=== PATIENT | male | born 1930 | race African-American/Black ===

== ENCOUNTER 2017-05-06 10:04 | Inpatient (IN) | payer MEDICARE, OTHER ==
[2017-05-06 10:40] LABS: ADD MAN DIFF? NO
[2017-05-06 10:57] LABS: ANION GAP 13 (6-14); BASO # 0.1 x10^3/uL (0.0-0.2); BASO % 1 % (0-3); BLOOD UREA NITROGEN 32 mg/dL (8-26); BUN/CREATININE RATIO 15 (6-20); CALCIUM 8.9 mg/dL (8.5-10.1); CARBON DIOXIDE 24 mmol/L (21-32); CHLORIDE 104 mmol/L (98-107); CREATININE 2.2 mg/dL (0.7-1.3); EOS # 0.1 x10^3/uL (0.0-0.7); EOS % 2 % (0-3); GFR 34.7; GLUCOSE 108 mg/dL (70-99); HEMOGLOBIN 11.7 g/dL (13.0-17.5); LYMPH # 0.6 x10^3/uL (1.0-4.8); LYMPH % 9 % (24-48); MEAN CORPUSCULAR HEMOGLOBIN 31 pg (25-35); MEAN CORPUSCULAR HGB CONC 33 g/dL (31-37); MEAN CORPUSCULAR VOLUME 96 fL (79-100); MONO # 1.1 x10^3/uL (0.0-1.1); MONO % 17 % (0-9); NEUT # 4.7 x10^3uL (1.8-7.7); NEUT % 71 % (31-73); PLATELET COUNT 168 x10^3/uL (140-400); POTASSIUM 4.2 mmol/L (3.5-5.1); RED BLOOD COUNT 3.75 x10^6/uL (4.30-5.70); RED CELL DISTRIBUTION WIDTH 13.4 % (11.5-14.5); SODIUM 141 mmol/L (136-145); WHITE BLOOD COUNT 6.6 x10^3/uL (4.0-11.0)
[2017-05-06 11:04] LABS: ALBUMIN 3.5 g/dL (3.4-5.0); ALK PHOS 88 U/L (46-116); ALT (SGPT) 29 U/L (16-63); AST (SGOT) 50 U/L (15-37); CREATINE KINASE 418 U/L (39-308); TOTAL BILIRUBIN 0.7 mg/dL (0.2-1.0)
[2017-05-06 11:05] LABS: TROPONINI 0.034 ng/mL (0.000-0.055)
[2017-05-06 11:23] LABS: C-REACTIVE PROTEIN 76.5 mg/L (0-3.3)
[2017-05-06 11:49] LABS: NT-PRO BNP 4006 pg/mL (0-449)
[2017-05-06] MEDS ORDERED: ONDANSETRON PF 4 MG/2 ML VIAL. IV (12:30)
[2017-05-06] MEDS ORDERED: FUROSEMIDE 20 MG/2 ML VIAL. IVP (12:30)
[2017-05-06] MEDS: VANCOMYCIN 2 GM in IV DEXTROSE 5 %-0.2 % NACL 500 ML IV (12:46)
[2017-05-06] MEDS: FUROSEMIDE 20 MG/2 ML VIAL. IVP (12:46)
[2017-05-06] MEDS: VANCOMYCIN PER PHARMACY MC (14:47)
[2017-05-06] MEDS: FUROSEMIDE 40 MG/4 ML VIAL. IVP (15:54)
[2017-05-06] MEDS: MORPHINE SULFATE 4 MG/ML DISP.SYRIN. IV (15:54)
[2017-05-06 16:14] LABS: BILIRUBIN,URINE NEGATIVE (NEG); CLARITY,URINE CLEAR; COLOR,URINE YELLOW; GLUCOSE,URINE NEGATIVE (NEG); NITRITE,URINE NEGATIVE (NEG); PH,URINE 5.5; PROTEIN,URINE 30 mg/dL (NEG-TRACE); UROBILINOGEN,URINE 0.2 mg/dL (0.2 mg/dL)
[2017-05-06 16:41] LABS: BACTERIA,URINE 0 /HPF (0-FEW); RBC,URINE 0 /HPF (0-2); SQUAMOUS EPITHELIAL CELL,UR OCC /LPF; WBC,URINE OCC /HPF (0-4)
[2017-05-06 16:42] LABS: AMORPHOUS SEDIMENT,UR PRESENT /HPF; HYALINE CASTS, URINE OCCASIONAL /HPF
[2017-05-06] MEDS: LACTOBACILLUS RHAMNOSUS GG 1 CAPSULE. PO (21:02)
[2017-05-07 05:15] LABS: ADD MAN DIFF? NO
[2017-05-07 05:18] LABS: BASO % 1 % (0-3); EOS # 0.2 x10^3/uL (0.0-0.7); EOS % 4 % (0-3); HEMATOCRIT 32.6 % (39.0-53.0); HEMOGLOBIN 10.8 g/dL (13.0-17.5); LYMPH # 0.8 x10^3/uL (1.0-4.8); LYMPH % 17 % (24-48); MEAN CORPUSCULAR HEMOGLOBIN 32 pg (25-35); MEAN CORPUSCULAR HGB CONC 33 g/dL (31-37); MEAN CORPUSCULAR VOLUME 96 fL (79-100); MONO % 20 % (0-9); NEUT % 59 % (31-73); PLATELET COUNT 142 x10^3/uL (140-400); RED BLOOD COUNT 3.39 x10^6/uL (4.30-5.70); WHITE BLOOD COUNT 5.1 x10^3/uL (4.0-11.0)
[2017-05-07 05:40] LABS: ANION GAP 11 (6-14); BLOOD UREA NITROGEN 34 mg/dL (8-26); CALCIUM 8.4 mg/dL (8.5-10.1); CARBON DIOXIDE 25 mmol/L (21-32); CHLORIDE 107 mmol/L (98-107); CREATININE 2.5 mg/dL (0.7-1.3); GFR 29.9; GLUCOSE 90 mg/dL (70-99); POTASSIUM 4.1 mmol/L (3.5-5.1); SODIUM 143 mmol/L (136-145)
[2017-05-07 08:48] LABS: CHOLESTEROL 98 mg/dL (0-200); HDLC 48 mg/dL (40-60); LDLC 41 mg/dL (0-100); NON-HDL CHOLESTEROL 50 mg/dL (0-129); TRIGLYCERIDES 44 mg/dL (0-150); VLDLC 9 mg/dL (0-40)
[2017-05-07 08:56] LABS: THYROID STIM HORMONE (TSH) 30.428 uIU/mL (0.358-3.74)
[2017-05-07] MEDS: amLODIPine BESYLATE 5 MG TABLET PO (10:11)
[2017-05-07] MEDS: LACTOBACILLUS RHAMNOSUS GG 1 CAPSULE. PO ×2 (10:11→21:14)
[2017-05-07] MEDS: ALLOPURINOL 100 MG TABLET. PO (10:11)
[2017-05-07] MEDS: LEVOTHYROXINE 100 MCG TABLET PO (10:11)
[2017-05-07] MEDS: ASPIRIN ENTERIC COATED 81 MG TABLET.DR. PO (10:11)
[2017-05-07] MEDS: ENOXAPARIN 30 MG/0.3 ML SYRINGE. SQ (10:13)
[2017-05-07] MEDS ORDERED: MAGNESIUM SULFATE 2GM 50 ML IV (11:15)
[2017-05-07 11:28] LABS: % SAT IRON 15 % (15-34); IRON,SERUM 31 ug/dL (65-175)
[2017-05-07 11:30] LABS: RETIC COUNT 1.1 % (0.5-2.5)
[2017-05-07 11:41] LABS: FERRITIN 150 ng/mL (26-388)
[2017-05-07] MEDS ORDERED: VANCOMYCIN 1.25 GM in IV DEXTROSE 5% 250 ML IV (13:00)
[2017-05-07] MEDS: FLUCONAZOLE 100 MG TABLET. PO (13:45)
[2017-05-07] MEDS: PIPERACILLIN/TAZOBACTAM 2.25 GM in IV NORMAL SALINE 50ML 50 ML IV ×2 (13:45→18:34)
[2017-05-07] MEDS: LINEZOLID 600 MG TABLET PO (21:14)
[2017-05-08] MEDS: PIPERACILLIN/TAZOBACTAM 2.25 GM in IV NORMAL SALINE 50ML 50 ML IV ×5 (00:43→23:29)
[2017-05-08 04:31] LABS: BASO % 1 % (0-3); EOS # 0.2 x10^3/uL (0.0-0.7); EOS % 4 % (0-3); HEMATOCRIT 33.1 % (39.0-53.0); HEMOGLOBIN 10.9 g/dL (13.0-17.5); LYMPH % 20 % (24-48); MEAN CORPUSCULAR HEMOGLOBIN 32 pg (25-35); MEAN CORPUSCULAR HGB CONC 33 g/dL (31-37); MEAN CORPUSCULAR VOLUME 97 fL (79-100); MONO # 1.1 x10^3/uL (0.0-1.1); MONO % 20 % (0-9); NEUT # 2.9 x10^3uL (1.8-7.7); NEUT % 55 % (31-73); PLATELET COUNT 141 x10^3/uL (140-400); RED BLOOD COUNT 3.43 x10^6/uL (4.30-5.70); RED CELL DISTRIBUTION WIDTH 13.8 % (11.5-14.5); WHITE BLOOD COUNT 5.2 x10^3/uL (4.0-11.0)
[2017-05-08 04:59] LABS: ADD MAN DIFF? YES
[2017-05-08] MEDS: LEVOTHYROXINE 100 MCG TABLET PO (05:15)
[2017-05-08 05:55] LABS: ALBUMIN 2.8 g/dL (3.4-5.0); ANION GAP 12 (6-14); BLOOD UREA NITROGEN 37 mg/dL (8-26); CALCIUM 8.5 mg/dL (8.5-10.1); CARBON DIOXIDE 24 mmol/L (21-32); CHLORIDE 106 mmol/L (98-107); CREATININE 2.4 mg/dL (0.7-1.3); GFR 31.4; GLUCOSE 90 mg/dL (70-99); PHOSPHORUS 3.7 mg/dL (2.6-4.7); POTASSIUM 3.9 mmol/L (3.5-5.1); SODIUM 142 mmol/L (136-145)
[2017-05-08 08:34] LABS: % BANDS 3 % (0-9); % EOS 3 % (0-5); % LYMPHS 17 % (24-48); % MONOS 17 % (0-10); % SEGS 60 % (35-66); PLT ESTIMATE ADEQUATE (ADEQUATE)
[2017-05-08] MEDS: LINEZOLID 600 MG TABLET PO ×2 (08:48→22:08)
[2017-05-08] MEDS: LACTOBACILLUS RHAMNOSUS GG 1 CAPSULE. PO ×2 (08:48→22:08)
[2017-05-08] MEDS: ALLOPURINOL 100 MG TABLET. PO (08:48)
[2017-05-08] MEDS: FLUCONAZOLE 100 MG TABLET. PO (08:48)
[2017-05-08] MEDS: ASPIRIN ENTERIC COATED 81 MG TABLET.DR. PO (08:49)
[2017-05-08] MEDS: ENOXAPARIN 40 MG/0.4 ML SYRINGE. SQ (08:49)
[2017-05-08] MEDS: amLODIPine BESYLATE 5 MG TABLET PO (08:49)
[2017-05-08] MEDS: CARVEDILOL 3.125 MG TABLET. PO ×2 (11:51→17:35)
[2017-05-08] MEDS: FUROSEMIDE 40 MG TABLET. PO (14:01)
[2017-05-08] MEDS: FUROSEMIDE 100 MG/10 ML VIAL. IVP ×2 (14:34→23:28)
[2017-05-08] MEDS: ALBUMIN HUMAN 25% 100 ML IV ×2 (14:34→22:08)
[2017-05-08 16:11] LABS: TOTAL PROTEIN CREATININE RATIO 519 mg/g creat (0-200); UR CREATININE RD 78.6 mg/dL (Not Estab.); UR PROTEIN RD 40.8 mg/dL (Not Estab.)
[2017-05-09] MEDS: PIPERACILLIN/TAZOBACTAM 2.25 GM in IV NORMAL SALINE 50ML 50 ML IV ×4 (05:41→23:58)
[2017-05-09] MEDS: LEVOTHYROXINE 112 MCG TABLET PO (05:41)
[2017-05-09 07:03] LABS: ALBUMIN 3.3 g/dL (3.4-5.0); ALBUMIN/GLOBULIN RATIO 1.1 (1.0-1.7); ALK PHOS 70 U/L (46-116); ALT (SGPT) 25 U/L (16-63); ANION GAP 12 (6-14); AST (SGOT) 31 U/L (15-37); BLOOD UREA NITROGEN 36 mg/dL (8-26); BUN/CREATININE RATIO 13 (6-20); CALCIUM 8.3 mg/dL (8.5-10.1); CARBON DIOXIDE 26 mmol/L (21-32); CHLORIDE 104 mmol/L (98-107); CREATININE 2.7 mg/dL (0.7-1.3); GFR 27.4; GLUCOSE 88 mg/dL (70-99); POTASSIUM 3.8 mmol/L (3.5-5.1); SODIUM 142 mmol/L (136-145); TOTAL BILIRUBIN 0.7 mg/dL (0.2-1.0); TOTAL PROTEIN 6.3 g/dL (6.4-8.2)
[2017-05-09 07:06] LABS: MAGNESIUM 1.9 mg/dL (1.8-2.4)
[2017-05-09] MEDS: FLUCONAZOLE 100 MG TABLET. PO (08:24)
[2017-05-09] MEDS: LACTOBACILLUS RHAMNOSUS GG 1 CAPSULE. PO ×2 (08:24→21:27)
[2017-05-09] MEDS: ALLOPURINOL 100 MG TABLET. PO (08:24)
[2017-05-09] MEDS: LINEZOLID 600 MG TABLET PO ×2 (08:24→21:27)
[2017-05-09] MEDS: CARVEDILOL 3.125 MG TABLET. PO ×2 (08:24→17:35)
[2017-05-09] MEDS: FUROSEMIDE 40 MG TABLET. PO ×2 (08:24→14:00)
[2017-05-09] MEDS: ASPIRIN ENTERIC COATED 81 MG TABLET.DR. PO (08:24)
[2017-05-09] MEDS: POTASSIUM CHLORIDE 10 MEQ TABLET.ER. PO ×3 (09:10→17:34)
[2017-05-09] MEDS: ALBUMIN HUMAN 25% 100 ML IV ×2 (10:24→21:08)
[2017-05-09] MEDS: metOLazone 2.5 MG TABLET PO (10:25)
[2017-05-09] MEDS: ENOXAPARIN 40 MG/0.4 ML SYRINGE. SQ (10:25)
[2017-05-09] MEDS: FUROSEMIDE 100 MG/10 ML VIAL. IVP ×2 (11:30→22:27)
[2017-05-10] MEDS: PIPERACILLIN/TAZOBACTAM 2.25 GM in IV NORMAL SALINE 50ML 50 ML IV ×3 (06:05→17:49)
[2017-05-10] MEDS: LEVOTHYROXINE 125 MCG TABLET PO (06:05)
[2017-05-10 06:16] LABS: ALBUMIN 3.4 g/dL (3.4-5.0); ANION GAP 10 (6-14); BLOOD UREA NITROGEN 37 mg/dL (8-26); CALCIUM 8.6 mg/dL (8.5-10.1); CARBON DIOXIDE 28 mmol/L (21-32); CHLORIDE 103 mmol/L (98-107); CREATININE 2.9 mg/dL (0.7-1.3); GFR 25.2; GLUCOSE 90 mg/dL (70-99); MAGNESIUM 1.8 mg/dL (1.8-2.4); PHOSPHORUS 3.9 mg/dL (2.6-4.7); POTASSIUM 3.7 mmol/L (3.5-5.1); SODIUM 141 mmol/L (136-145)
[2017-05-10] MEDS: ASPIRIN ENTERIC COATED 81 MG TABLET.DR. PO (09:13)
[2017-05-10] MEDS: LACTOBACILLUS RHAMNOSUS GG 1 CAPSULE. PO ×2 (09:13→21:09)
[2017-05-10] MEDS: LINEZOLID 600 MG TABLET PO ×2 (09:13→21:09)
[2017-05-10] MEDS: ALLOPURINOL 100 MG TABLET. PO (09:14)
[2017-05-10] MEDS: SPIRONOLACTONE 25 MG TABLET PO (09:14)
[2017-05-10] MEDS: metOLazone 2.5 MG TABLET PO (09:14)
[2017-05-10] MEDS: FLUCONAZOLE 100 MG TABLET. PO (09:14)
[2017-05-10] MEDS: ENOXAPARIN 40 MG/0.4 ML SYRINGE. SQ (09:15)
[2017-05-10] MEDS: CARVEDILOL 6.25 MG TABLET. PO ×2 (09:15→17:48)
[2017-05-10] MEDS: POTASSIUM CHLORIDE 10 MEQ TABLET.ER. PO ×3 (10:04→17:48)
[2017-05-10] MEDS: ALBUMIN HUMAN 25% 100 ML IV (19:05)
[2017-05-10] MEDS: FUROSEMIDE 100 MG/10 ML VIAL. IVP (21:10)
[2017-05-11] MEDS: PIPERACILLIN/TAZOBACTAM 2.25 GM in IV NORMAL SALINE 50ML 50 ML IV ×3 (00:41→12:17)
[2017-05-11 05:22] LABS: ALBUMIN 3.6 g/dL (3.4-5.0); ANION GAP 12 (6-14); BLOOD UREA NITROGEN 40 mg/dL (8-26); CARBON DIOXIDE 30 mmol/L (21-32); CHLORIDE 101 mmol/L (98-107); CREATININE 3.2 mg/dL (0.7-1.3); GFR 22.5; GLUCOSE 91 mg/dL (70-99); PHOSPHORUS 4.1 mg/dL (2.6-4.7); POTASSIUM 3.6 mmol/L (3.5-5.1); SODIUM 143 mmol/L (136-145)
[2017-05-11] MEDS: ALBUMIN HUMAN 25% 100 ML IV (06:37)
[2017-05-11] MEDS: LEVOTHYROXINE 125 MCG TABLET PO (06:37)
[2017-05-11] MEDS: ALLOPURINOL 100 MG TABLET. PO (09:36)
[2017-05-11] MEDS: CARVEDILOL 6.25 MG TABLET. PO ×2 (09:36→17:32)
[2017-05-11] MEDS: ASPIRIN ENTERIC COATED 81 MG TABLET.DR. PO (09:36)
[2017-05-11] MEDS: FLUCONAZOLE 100 MG TABLET. PO (09:36)
[2017-05-11] MEDS: SPIRONOLACTONE 25 MG TABLET PO (09:36)
[2017-05-11] MEDS: FUROSEMIDE 100 MG/10 ML VIAL. IVP (09:37)
[2017-05-11] MEDS: LINEZOLID 600 MG TABLET PO ×2 (09:37→21:18)
[2017-05-11] MEDS: LACTOBACILLUS RHAMNOSUS GG 1 CAPSULE. PO ×2 (09:37→21:18)
[2017-05-11] MEDS: ENOXAPARIN 30 MG/0.3 ML SYRINGE. SQ (09:41)
[2017-05-11] MEDS: IV NORMAL SALINE 1000ML BAG 1,000 ML IV (12:17)
[2017-05-11] MEDS: AMOXICILLIN/K CLAV 500/125MG TABLET. PO (21:18)
[2017-05-12 06:32] LABS: ALBUMIN 3.7 g/dL (3.4-5.0); ANION GAP 12 (6-14); BLOOD UREA NITROGEN 39 mg/dL (8-26); CALCIUM 8.7 mg/dL (8.5-10.1); CARBON DIOXIDE 29 mmol/L (21-32); CHLORIDE 99 mmol/L (98-107); CREATININE 3.4 mg/dL (0.7-1.3); GLUCOSE 91 mg/dL (70-99); MAGNESIUM 1.9 mg/dL (1.8-2.4); PHOSPHORUS 4.5 mg/dL (2.6-4.7); POTASSIUM 3.5 mmol/L (3.5-5.1); SODIUM 140 mmol/L (136-145)
[2017-05-12] MEDS: LEVOTHYROXINE 125 MCG TABLET PO (06:43)
[2017-05-12] MEDS: IV NORMAL SALINE 250ML 250 ML IV ×2 (09:00→14:00)
[2017-05-12] MEDS: ALLOPURINOL 100 MG TABLET. PO (09:37)
[2017-05-12] MEDS: LACTOBACILLUS RHAMNOSUS GG 1 CAPSULE. PO ×2 (09:37→22:46)
[2017-05-12] MEDS: FLUCONAZOLE 100 MG TABLET. PO (09:37)
[2017-05-12] MEDS: AMOXICILLIN/K CLAV 500/125MG TABLET. PO ×2 (09:38→22:46)
[2017-05-12] MEDS: LINEZOLID 600 MG TABLET PO ×2 (09:38→22:46)
[2017-05-12] MEDS: SPIRONOLACTONE 25 MG TABLET PO (09:38)
[2017-05-12] MEDS: CARVEDILOL 6.25 MG TABLET. PO ×2 (09:39→17:32)
[2017-05-12] MEDS: ASPIRIN ENTERIC COATED 81 MG TABLET.DR. PO (09:39)
[2017-05-12] MEDS: ENOXAPARIN 30 MG/0.3 ML SYRINGE. SQ (09:40)
[2017-05-12 11:05] LABS: POC GLUCOSE 128 mg/dL (70-99)
[2017-05-12] MEDS: IV NORMAL SALINE 1000ML BAG 1,000 ML IV (12:26)
[2017-05-12 16:34] LABS: POC GLUCOSE 105 mg/dL (70-99)
[2017-05-13] MEDS: LEVOTHYROXINE 125 MCG TABLET PO (06:02)
[2017-05-13 06:40] LABS: ALBUMIN 3.6 g/dL (3.4-5.0); ANION GAP 13 (6-14); BLOOD UREA NITROGEN 45 mg/dL (8-26); CALCIUM 8.8 mg/dL (8.5-10.1); CARBON DIOXIDE 29 mmol/L (21-32); CHLORIDE 100 mmol/L (98-107); CREATININE 3.1 mg/dL (0.7-1.3); GFR 23.3; GLUCOSE 92 mg/dL (70-99); PHOSPHORUS 4.3 mg/dL (2.6-4.7); POTASSIUM 3.5 mmol/L (3.5-5.1); SODIUM 142 mmol/L (136-145)
[2017-05-13] MEDS: AMOXICILLIN/K CLAV 500/125MG TABLET. PO ×2 (08:32→22:10)
[2017-05-13] MEDS: ASPIRIN ENTERIC COATED 81 MG TABLET.DR. PO (08:33)
[2017-05-13] MEDS: LACTOBACILLUS RHAMNOSUS GG 1 CAPSULE. PO ×2 (08:33→22:11)
[2017-05-13] MEDS: CARVEDILOL 6.25 MG TABLET. PO ×2 (08:33→16:56)
[2017-05-13] MEDS: IV NORMAL SALINE 250ML 250 ML IV ×2 (08:33→15:00)
[2017-05-13] MEDS: ALLOPURINOL 100 MG TABLET. PO (08:33)
[2017-05-13] MEDS: FLUCONAZOLE 100 MG TABLET. PO (08:33)
[2017-05-14 06:12] LABS: ALBUMIN 3.5 g/dL (3.4-5.0); ANION GAP 12 (6-14); BLOOD UREA NITROGEN 48 mg/dL (8-26); CALCIUM 8.6 mg/dL (8.5-10.1); CARBON DIOXIDE 27 mmol/L (21-32); CHLORIDE 101 mmol/L (98-107); GFR 24.2; GLUCOSE 92 mg/dL (70-99); PHOSPHORUS 4.1 mg/dL (2.6-4.7); POTASSIUM 3.6 mmol/L (3.5-5.1); SODIUM 140 mmol/L (136-145)
[2017-05-14] MEDS: LEVOTHYROXINE 125 MCG TABLET PO (06:21)
[2017-05-14] MEDS: FLUCONAZOLE 100 MG TABLET. PO (07:59)
[2017-05-14] MEDS: CARVEDILOL 6.25 MG TABLET. PO ×2 (07:59→16:56)
[2017-05-14] MEDS: LACTOBACILLUS RHAMNOSUS GG 1 CAPSULE. PO ×2 (07:59→21:30)
[2017-05-14] MEDS: ALLOPURINOL 100 MG TABLET. PO (07:59)
[2017-05-14] MEDS: ASPIRIN ENTERIC COATED 81 MG TABLET.DR. PO (07:59)
[2017-05-14] MEDS: AMOXICILLIN/K CLAV 500/125MG TABLET. PO ×2 (07:59→21:30)
[2017-05-14] MEDS: IV NORMAL SALINE 250ML 250 ML IV ×2 (09:30→14:36)
[2017-05-14] MEDS: VITS A & D/LANOLIN TOPICAL OINTMENT 56GM TUBE. TP (21:32)
[2017-05-15] MEDS: LEVOTHYROXINE 125 MCG TABLET PO (06:01)
[2017-05-15] MEDS: FLUCONAZOLE 100 MG TABLET. PO (09:14)
[2017-05-15] MEDS: AMOXICILLIN/K CLAV 500/125MG TABLET. PO ×2 (09:14→20:20)
[2017-05-15] MEDS: ALLOPURINOL 100 MG TABLET. PO (09:14)
[2017-05-15] MEDS: LACTOBACILLUS RHAMNOSUS GG 1 CAPSULE. PO ×2 (09:15→20:20)
[2017-05-15] MEDS: CARVEDILOL 6.25 MG TABLET. PO ×2 (09:15→17:11)
[2017-05-15] MEDS: ASPIRIN ENTERIC COATED 81 MG TABLET.DR. PO (09:15)
[2017-05-15] MEDS: IV NORMAL SALINE 250ML 250 ML IV ×2 (09:16→14:00)
[2017-05-16 05:42] LABS: ANION GAP 10 (6-14); BLOOD UREA NITROGEN 45 mg/dL (8-26); CALCIUM 9.2 mg/dL (8.5-10.1); CARBON DIOXIDE 27 mmol/L (21-32); CHLORIDE 101 mmol/L (98-107); CREATININE 2.5 mg/dL (0.7-1.3); GFR 29.9; GLUCOSE 99 mg/dL (70-99); POTASSIUM 3.7 mmol/L (3.5-5.1); SODIUM 138 mmol/L (136-145)
[2017-05-16] MEDS: VITS A & D/LANOLIN TOPICAL OINTMENT 56GM TUBE. TP (06:00)
[2017-05-16] MEDS: LEVOTHYROXINE 125 MCG TABLET PO (06:16)
[2017-05-16] MEDS: IV NORMAL SALINE 250ML 250 ML IV ×2 (09:00→14:00)
[2017-05-16] MEDS: CARVEDILOL 6.25 MG TABLET. PO ×2 (09:16→17:17)
[2017-05-16] MEDS: FLUCONAZOLE 100 MG TABLET. PO (09:16)
[2017-05-16] MEDS: LACTOBACILLUS RHAMNOSUS GG 1 CAPSULE. PO ×2 (09:16→21:19)
[2017-05-16] MEDS: ASPIRIN ENTERIC COATED 81 MG TABLET.DR. PO (09:16)
[2017-05-16] MEDS: AMOXICILLIN/K CLAV 500/125MG TABLET. PO ×2 (09:16→21:19)
[2017-05-16] MEDS: ALLOPURINOL 100 MG TABLET. PO (09:16)
[2017-05-16] MEDS: ACETAMINOPHEN 500 MG TABLET PO ×2 (17:17→23:29)
[2017-05-16] MEDS: guaiFENesin ORAL 200 MG/10 ML LIQUID. PO (17:17)
[2017-05-17] MEDS: LEVOTHYROXINE 125 MCG TABLET PO (05:45)
[2017-05-17] MEDS: guaiFENesin ORAL 200 MG/10 ML LIQUID. PO (05:45)
[2017-05-17] MEDS: AMOXICILLIN/K CLAV 500/125MG TABLET. PO ×2 (09:31→20:49)
[2017-05-17] MEDS: ALLOPURINOL 100 MG TABLET. PO (09:31)
[2017-05-17] MEDS: LACTOBACILLUS RHAMNOSUS GG 1 CAPSULE. PO ×2 (09:31→20:49)
[2017-05-17] MEDS: ASPIRIN ENTERIC COATED 81 MG TABLET.DR. PO (09:31)
[2017-05-17] MEDS: CARVEDILOL 6.25 MG TABLET. PO ×2 (09:31→17:31)
[2017-05-17] MEDS: IV NORMAL SALINE 250ML 250 ML IV (09:32)
[2017-05-17] MEDS: FLUCONAZOLE 100 MG TABLET. PO (09:34)
[2017-05-17] MEDS: ACETAMINOPHEN 500 MG TABLET PO (14:53)
[2017-05-18] MEDS: ACETAMINOPHEN 500 MG TABLET PO ×3 (02:42→16:43)
[2017-05-18 04:55] LABS: ADD MAN DIFF? YES; BASO % 1 % (0-3); EOS % 1 % (0-3); HEMATOCRIT 30.3 % (39.0-53.0); HEMOGLOBIN 10.3 g/dL (13.0-17.5); LYMPH # 0.9 x10^3/uL (1.0-4.8); LYMPH % 21 % (24-48); MEAN CORPUSCULAR HEMOGLOBIN 32 pg (25-35); MEAN CORPUSCULAR HGB CONC 34 g/dL (31-37); MEAN CORPUSCULAR VOLUME 93 fL (79-100); MONO # 1.5 x10^3/uL (0.0-1.1); MONO % 33 % (0-9); NEUT # 1.9 x10^3uL (1.8-7.7); NEUT % 44 % (31-73); PLATELET COUNT 77 x10^3/uL (140-400); RED BLOOD COUNT 3.25 x10^6/uL (4.30-5.70); RED CELL DISTRIBUTION WIDTH 13.7 % (11.5-14.5); WHITE BLOOD COUNT 4.5 x10^3/uL (4.0-11.0)
[2017-05-18 05:26] LABS: ALBUMIN 3.4 g/dL (3.4-5.0); ALBUMIN/GLOBULIN RATIO 1.1 (1.0-1.7); ALK PHOS 71 U/L (46-116); ALT (SGPT) 21 U/L (16-63); ANION GAP 10 (6-14); AST (SGOT) 29 U/L (15-37); BLOOD UREA NITROGEN 52 mg/dL (8-26); BUN/CREATININE RATIO 17 (6-20); CALCIUM 8.4 mg/dL (8.5-10.1); CARBON DIOXIDE 26 mmol/L (21-32); CHLORIDE 102 mmol/L (98-107); GFR 24.2; GLUCOSE 102 mg/dL (70-99); POTASSIUM 4.4 mmol/L (3.5-5.1); SODIUM 138 mmol/L (136-145); TOTAL BILIRUBIN 0.4 mg/dL (0.2-1.0); TOTAL PROTEIN 6.6 g/dL (6.4-8.2)
[2017-05-18] MEDS: LEVOTHYROXINE 125 MCG TABLET PO (06:38)
[2017-05-18] MEDS: FLUCONAZOLE 100 MG TABLET. PO (09:09)
[2017-05-18] MEDS: ASPIRIN ENTERIC COATED 81 MG TABLET.DR. PO (09:09)
[2017-05-18] MEDS: ALLOPURINOL 100 MG TABLET. PO (09:09)
[2017-05-18] MEDS: CARVEDILOL 6.25 MG TABLET. PO ×2 (09:10→16:43)
[2017-05-18] MEDS: AMOXICILLIN/K CLAV 500/125MG TABLET. PO (09:10)
[2017-05-18] MEDS: LACTOBACILLUS RHAMNOSUS GG 1 CAPSULE. PO ×2 (09:14→20:39)
[2017-05-18 10:37] LABS: BILIRUBIN,URINE NEGATIVE (NEG); CLARITY,URINE CLEAR; COLOR,URINE YELLOW; GLUCOSE,URINE NEGATIVE (NEG); NITRITE,URINE NEGATIVE (NEG); PROTEIN,URINE 100 mg/dL (NEG-TRACE); UROBILINOGEN,URINE 0.2 mg/dL (0.2 mg/dL)
[2017-05-18 11:15] LABS: BACTERIA,URINE 0 /HPF (0-FEW); HYALINE CASTS, URINE FEW /HPF; RBC,URINE 0 /HPF (0-2); SQUAMOUS EPITHELIAL CELL,UR FEW /LPF
[2017-05-18 12:19] LABS: % BANDS 1 % (0-9); % BASOS 1 % (0-3); % EOS 1 % (0-5); % LYMPHS 15 % (24-48); % MONOS 32 % (0-10); % SEGS 50 % (35-66); PLT ESTIMATE DECREASED (ADEQUATE)
[2017-05-18] MEDS: PIPERACILLIN/TAZOBACTAM 3.375 GM in IV NORMAL SALINE 50ML 50 ML IV ×3 (15:06→23:58)
[2017-05-18] MEDS: LINEZOLID 600 MG TABLET PO ×2 (15:08→20:39)
[2017-05-19 05:25] LABS: ADD MAN DIFF? NO
[2017-05-19 05:41] LABS: BASO % 0 % (0-3); EOS % 1 % (0-3); HEMATOCRIT 32.2 % (39.0-53.0); HEMOGLOBIN 10.7 g/dL (13.0-17.5); LYMPH # 0.8 x10^3/uL (1.0-4.8); LYMPH % 15 % (24-48); MEAN CORPUSCULAR HEMOGLOBIN 31 pg (25-35); MEAN CORPUSCULAR HGB CONC 33 g/dL (31-37); MEAN CORPUSCULAR VOLUME 93 fL (79-100); MONO # 1.7 x10^3/uL (0.0-1.1); MONO % 31 % (0-9); NEUT # 2.8 x10^3uL (1.8-7.7); NEUT % 53 % (31-73); PLATELET COUNT 64 x10^3/uL (140-400); RED BLOOD COUNT 3.44 x10^6/uL (4.30-5.70); RED CELL DISTRIBUTION WIDTH 14.2 % (11.5-14.5); WHITE BLOOD COUNT 5.4 x10^3/uL (4.0-11.0)
[2017-05-19 05:59] LABS: ANION GAP 13 (6-14); BLOOD UREA NITROGEN 62 mg/dL (8-26); CALCIUM 8.5 mg/dL (8.5-10.1); CARBON DIOXIDE 24 mmol/L (21-32); CHLORIDE 100 mmol/L (98-107); CREATININE 3.4 mg/dL (0.7-1.3); GLUCOSE 103 mg/dL (70-99); POTASSIUM 4.1 mmol/L (3.5-5.1); SODIUM 137 mmol/L (136-145)
[2017-05-19] MEDS: PIPERACILLIN/TAZOBACTAM 3.375 GM in IV NORMAL SALINE 50ML 50 ML IV ×3 (06:35→16:01)
[2017-05-19] MEDS: LEVOTHYROXINE 125 MCG TABLET PO (06:35)
[2017-05-19] MEDS: ALLOPURINOL 100 MG TABLET. PO (07:58)
[2017-05-19] MEDS: FLUCONAZOLE 100 MG TABLET. PO (07:58)
[2017-05-19] MEDS: ASPIRIN ENTERIC COATED 81 MG TABLET.DR. PO (07:58)
[2017-05-19] MEDS: LACTOBACILLUS RHAMNOSUS GG 1 CAPSULE. PO ×2 (07:58→20:38)
[2017-05-19] MEDS: ACETAMINOPHEN 500 MG TABLET PO ×2 (07:58→16:01)
[2017-05-19] MEDS: LINEZOLID 600 MG TABLET PO ×2 (07:58→20:38)
[2017-05-19] MEDS: CARVEDILOL 6.25 MG TABLET. PO ×2 (07:59→16:04)
[2017-05-19] MEDS: VITS A & D/LANOLIN TOPICAL OINTMENT 56GM TUBE. TP (11:05)
[2017-05-19] MEDS: guaiFENesin ORAL 200 MG/10 ML LIQUID. PO ×2 (16:05→20:38)
[2017-05-20] MEDS: PIPERACILLIN/TAZOBACTAM 3.375 GM in IV NORMAL SALINE 50ML 50 ML IV ×3 (00:49→13:37)
[2017-05-20] MEDS: ACETAMINOPHEN 500 MG TABLET PO (00:57)
[2017-05-20 05:22] LABS: ADD MAN DIFF? NO
[2017-05-20 05:32] LABS: BASO % 1 % (0-3); EOS # 0.1 x10^3/uL (0.0-0.7); EOS % 2 % (0-3); HEMATOCRIT 30.6 % (39.0-53.0); LYMPH # 0.7 x10^3/uL (1.0-4.8); LYMPH % 22 % (24-48); MEAN CORPUSCULAR HEMOGLOBIN 31 pg (25-35); MEAN CORPUSCULAR HGB CONC 33 g/dL (31-37); MEAN CORPUSCULAR VOLUME 94 fL (79-100); MONO # 0.8 x10^3/uL (0.0-1.1); MONO % 24 % (0-9); NEUT # 1.7 x10^3uL (1.8-7.7); NEUT % 51 % (31-73); PLATELET COUNT 53 x10^3/uL (140-400); RED BLOOD COUNT 3.25 x10^6/uL (4.30-5.70); RED CELL DISTRIBUTION WIDTH 14.2 % (11.5-14.5); WHITE BLOOD COUNT 3.3 x10^3/uL (4.0-11.0)
[2017-05-20 05:49] LABS: ANION GAP 11 (6-14); BLOOD UREA NITROGEN 65 mg/dL (8-26); CALCIUM 8.3 mg/dL (8.5-10.1); CARBON DIOXIDE 26 mmol/L (21-32); CHLORIDE 98 mmol/L (98-107); CREATININE 3.9 mg/dL (0.7-1.3); GFR 17.9; GLUCOSE 96 mg/dL (70-99); SODIUM 135 mmol/L (136-145)
[2017-05-20] MEDS: guaiFENesin ORAL 200 MG/10 ML LIQUID. PO ×2 (05:50→20:24)
[2017-05-20] MEDS: LEVOTHYROXINE 125 MCG TABLET PO (05:50)
[2017-05-20] MEDS: CARVEDILOL 6.25 MG TABLET. PO ×4 (08:00→16:45)
[2017-05-20] MEDS: VITS A & D/LANOLIN TOPICAL OINTMENT 56GM TUBE. TP (08:54)
[2017-05-20] MEDS: LACTOBACILLUS RHAMNOSUS GG 1 CAPSULE. PO ×2 (08:54→20:11)
[2017-05-20] MEDS: ALLOPURINOL 100 MG TABLET. PO (08:55)
[2017-05-20] MEDS: LINEZOLID 600 MG TABLET PO (08:55)
[2017-05-20] MEDS: ASPIRIN ENTERIC COATED 81 MG TABLET.DR. PO (08:55)
[2017-05-20] MEDS: FLUCONAZOLE 100 MG TABLET. PO (08:55)
[2017-05-20 11:54] LABS: RETIC COUNT 1.2 % (0.5-2.5)
[2017-05-20] MEDS: IV NORMAL SALINE 1000ML BAG 1,000 ML IV ×3 (13:36→23:15)
[2017-05-20 14:46] LABS: VITAMIN-B12 611 pg/mL (247-911)
[2017-05-20 14:46] LABS: FOLATE 17.63 ng/ml (3.2-20.0)
[2017-05-20] MEDS: CEFEPIME HCL IV Push 1 GM VIAL. IVP (16:44)
[2017-05-20] MEDS ORDERED: CEFEPIME HCL 1 GM in IV DEXTROSE 5% 50 ML IV (22:00)
[2017-05-21 05:25] LABS: ADD MAN DIFF? NO
[2017-05-21 05:31] LABS: BASO % 1 % (0-3); EOS # 0.1 x10^3/uL (0.0-0.7); EOS % 4 % (0-3); HEMATOCRIT 30.2 % (39.0-53.0); HEMOGLOBIN 10.3 g/dL (13.0-17.5); LYMPH # 0.7 x10^3/uL (1.0-4.8); LYMPH % 27 % (24-48); MEAN CORPUSCULAR HEMOGLOBIN 32 pg (25-35); MEAN CORPUSCULAR HGB CONC 34 g/dL (31-37); MEAN CORPUSCULAR VOLUME 93 fL (79-100); MONO # 0.6 x10^3/uL (0.0-1.1); MONO % 22 % (0-9); NEUT # 1.2 x10^3uL (1.8-7.7); NEUT % 47 % (31-73); PLATELET COUNT 53 x10^3/uL (140-400); RED BLOOD COUNT 3.24 x10^6/uL (4.30-5.70); WHITE BLOOD COUNT 2.6 x10^3/uL (4.0-11.0)
[2017-05-21 06:06] LABS: ALBUMIN 3.1 g/dL (3.4-5.0); ALK PHOS 52 U/L (46-116); ALT (SGPT) 26 U/L (16-63); ANION GAP 11 (6-14); AST (SGOT) 50 U/L (15-37); BLOOD UREA NITROGEN 59 mg/dL (8-26); BUN/CREATININE RATIO 18 (6-20); CALCIUM 8.2 mg/dL (8.5-10.1); CARBON DIOXIDE 23 mmol/L (21-32); CHLORIDE 102 mmol/L (98-107); CREATININE 3.2 mg/dL (0.7-1.3); GFR 22.5; GLUCOSE 93 mg/dL (70-99); POTASSIUM 4.2 mmol/L (3.5-5.1); SODIUM 136 mmol/L (136-145); TOTAL BILIRUBIN 0.3 mg/dL (0.2-1.0); TOTAL PROTEIN 6.3 g/dL (6.4-8.2)
[2017-05-21] MEDS: LEVOTHYROXINE 125 MCG TABLET PO (06:24)
[2017-05-21] MEDS ORDERED: CEFEPIME HCL 1 GM in IV DEXTROSE 5% 50 ML IV (09:00)
[2017-05-21] MEDS: LACTOBACILLUS RHAMNOSUS GG 1 CAPSULE. PO ×2 (09:15→20:43)
[2017-05-21] MEDS: FLUCONAZOLE 100 MG TABLET. PO (09:15)
[2017-05-21] MEDS: ALLOPURINOL 100 MG TABLET. PO (09:15)
[2017-05-21] MEDS: ASPIRIN ENTERIC COATED 81 MG TABLET.DR. PO (09:15)
[2017-05-21] MEDS: CARVEDILOL 6.25 MG TABLET. PO ×2 (09:16→17:00)
[2017-05-21 10:26] LABS: C DIFF BY PCR Negative (Negative)
[2017-05-21] MEDS: TAMSULOSIN 0.4 MG CAP.ER.24H. PO (20:43)
[2017-05-21] MEDS: VITS A & D/LANOLIN TOPICAL OINTMENT 56GM TUBE. TP (20:53)
[2017-05-22] MEDS: LEVOTHYROXINE 125 MCG TABLET PO (06:04)
[2017-05-22] MEDS: ASPIRIN ENTERIC COATED 81 MG TABLET.DR. PO (09:56)
[2017-05-22] MEDS: FINASTERIDE 5 MG TABLET. PO (09:56)
[2017-05-22] MEDS: LACTOBACILLUS RHAMNOSUS GG 1 CAPSULE. PO ×2 (09:56→21:17)
[2017-05-22] MEDS: CARVEDILOL 6.25 MG TABLET. PO ×2 (09:59→17:51)
[2017-05-22] MEDS: ALLOPURINOL 100 MG TABLET. PO (10:15)
[2017-05-22] MEDS: TAMSULOSIN 0.4 MG CAP.ER.24H. PO ×2 (10:15→21:17)
[2017-05-23 05:57] LABS: ADD MAN DIFF? NO
[2017-05-23 06:20] LABS: BASO % 1 % (0-3); EOS # 0.1 x10^3/uL (0.0-0.7); EOS % 2 % (0-3); HEMATOCRIT 30.5 % (39.0-53.0); LYMPH % 41 % (24-48); MEAN CORPUSCULAR HEMOGLOBIN 31 pg (25-35); MEAN CORPUSCULAR HGB CONC 33 g/dL (31-37); MEAN CORPUSCULAR VOLUME 93 fL (79-100); MONO # 0.6 x10^3/uL (0.0-1.1); MONO % 22 % (0-9); NEUT # 0.8 x10^3uL (1.8-7.7); NEUT % 34 % (31-73); PLATELET COUNT 61 x10^3/uL (140-400); RED BLOOD COUNT 3.27 x10^6/uL (4.30-5.70); WHITE BLOOD COUNT 2.5 x10^3/uL (4.0-11.0)
[2017-05-23 06:23] LABS: ANION GAP 9 (6-14); BLOOD UREA NITROGEN 52 mg/dL (8-26); CALCIUM 8.3 mg/dL (8.5-10.1); CARBON DIOXIDE 25 mmol/L (21-32); CHLORIDE 104 mmol/L (98-107); CREATININE 2.8 mg/dL (0.7-1.3); GFR 26.3; GLUCOSE 98 mg/dL (70-99); POTASSIUM 4.2 mmol/L (3.5-5.1); SODIUM 138 mmol/L (136-145)
[2017-05-23] MEDS: LEVOTHYROXINE 125 MCG TABLET PO (06:38)
[2017-05-23] MEDS: guaiFENesin ORAL 200 MG/10 ML LIQUID. PO (09:16)
[2017-05-23] MEDS: LACTOBACILLUS RHAMNOSUS GG 1 CAPSULE. PO ×2 (09:17→20:30)
[2017-05-23] MEDS: ALLOPURINOL 100 MG TABLET. PO (09:24)
[2017-05-23] MEDS: ASPIRIN ENTERIC COATED 81 MG TABLET.DR. PO (09:25)
[2017-05-23] MEDS: CARVEDILOL 6.25 MG TABLET. PO ×2 (09:25→16:18)
[2017-05-23] MEDS: TAMSULOSIN 0.4 MG CAP.ER.24H. PO ×2 (09:25→20:30)
[2017-05-23] MEDS: FINASTERIDE 5 MG TABLET. PO (09:25)
[2017-05-23] MEDS: ENOXAPARIN 30 MG/0.3 ML SYRINGE. SQ (16:17)
[2017-05-24] MEDS: guaiFENesin ORAL 200 MG/10 ML LIQUID. PO ×2 (04:35→20:31)
[2017-05-24 04:51] LABS: HEMATOCRIT 30.2 % (39.0-53.0); HEMOGLOBIN 10.1 g/dL (13.0-17.5); MEAN CORPUSCULAR HEMOGLOBIN 31 pg (25-35); MEAN CORPUSCULAR HGB CONC 33 g/dL (31-37); MEAN CORPUSCULAR VOLUME 93 fL (79-100); PLATELET COUNT 64 x10^3/uL (140-400); RED BLOOD COUNT 3.25 x10^6/uL (4.30-5.70); RED CELL DISTRIBUTION WIDTH 14.4 % (11.5-14.5); WHITE BLOOD COUNT 2.5 x10^3/uL (4.0-11.0)
[2017-05-24 05:12] LABS: ANION GAP 13 (6-14); BLOOD UREA NITROGEN 49 mg/dL (8-26); CARBON DIOXIDE 23 mmol/L (21-32); CHLORIDE 106 mmol/L (98-107); CREATININE 2.5 mg/dL (0.7-1.3); GFR 29.9; GLUCOSE 96 mg/dL (70-99); POTASSIUM 4.3 mmol/L (3.5-5.1); SODIUM 142 mmol/L (136-145)
[2017-05-24] MEDS: LEVOTHYROXINE 125 MCG TABLET PO (06:20)
[2017-05-24] MEDS: FINASTERIDE 5 MG TABLET. PO (08:48)
[2017-05-24] MEDS: TAMSULOSIN 0.4 MG CAP.ER.24H. PO ×2 (08:48→20:27)
[2017-05-24] MEDS: LACTOBACILLUS RHAMNOSUS GG 1 CAPSULE. PO ×2 (08:48→20:27)
[2017-05-24] MEDS: ASPIRIN ENTERIC COATED 81 MG TABLET.DR. PO (08:48)
[2017-05-24] MEDS: CARVEDILOL 6.25 MG TABLET. PO ×2 (11:50→17:09)
[2017-05-24] MEDS: ALBUTEROL SULFATE 2.5 MG/3 ML NEBU. NEB ×3 (11:56→18:31)
[2017-05-24] MEDS: ENOXAPARIN 30 MG/0.3 ML SYRINGE. SQ (14:39)
[2017-05-25] MEDS: LEVOTHYROXINE 125 MCG TABLET PO (06:02)
[2017-05-25] MEDS: ALBUTEROL SULFATE 2.5 MG/3 ML NEBU. NEB ×4 (07:38→19:47)
[2017-05-25 08:17] LABS: ADD MAN DIFF? NO
[2017-05-25] MEDS: ASPIRIN ENTERIC COATED 81 MG TABLET.DR. PO (08:19)
[2017-05-25] MEDS: FINASTERIDE 5 MG TABLET. PO (08:19)
[2017-05-25] MEDS: TAMSULOSIN 0.4 MG CAP.ER.24H. PO ×2 (08:19→21:30)
[2017-05-25] MEDS: LACTOBACILLUS RHAMNOSUS GG 1 CAPSULE. PO ×2 (08:19→21:30)
[2017-05-25] MEDS: CARVEDILOL 6.25 MG TABLET. PO ×2 (08:20→17:42)
[2017-05-25 08:22] LABS: BASO % 1 % (0-3); EOS # 0.1 x10^3/uL (0.0-0.7); EOS % 4 % (0-3); HEMATOCRIT 34.4 % (39.0-53.0); HEMOGLOBIN 11.4 g/dL (13.0-17.5); LYMPH # 0.9 x10^3/uL (1.0-4.8); LYMPH % 31 % (24-48); MEAN CORPUSCULAR HEMOGLOBIN 31 pg (25-35); MEAN CORPUSCULAR HGB CONC 33 g/dL (31-37); MEAN CORPUSCULAR VOLUME 94 fL (79-100); MONO # 0.6 x10^3/uL (0.0-1.1); MONO % 19 % (0-9); NEUT # 1.3 x10^3uL (1.8-7.7); NEUT % 44 % (31-73); PLATELET COUNT 79 x10^3/uL (140-400); RED BLOOD COUNT 3.67 x10^6/uL (4.30-5.70); RED CELL DISTRIBUTION WIDTH 14.1 % (11.5-14.5)
[2017-05-25] MEDS ORDERED: MAGNESIUM SULFATE 2GM 50 ML IV (12:00)
[2017-05-25] MEDS: VITS A & D/LANOLIN TOPICAL OINTMENT 56GM TUBE. TP ×2 (13:49→21:33)
[2017-05-25] MEDS: ENOXAPARIN 30 MG/0.3 ML SYRINGE. SQ (13:49)
[2017-05-25] MEDS: guaiFENesin ORAL 200 MG/10 ML LIQUID. PO (21:30)
[2017-05-26] MEDS: LEVOTHYROXINE 125 MCG TABLET PO (05:57)
[2017-05-26 06:01] LABS: HEMOGLOBIN 10.2 g/dL (13.0-17.5)
[2017-05-26 06:10] LABS: ALBUMIN 3.1 g/dL (3.4-5.0); ANION GAP 11 (6-14); BLOOD UREA NITROGEN 39 mg/dL (8-26); CARBON DIOXIDE 25 mmol/L (21-32); CHLORIDE 108 mmol/L (98-107); CREATININE 2.1 mg/dL (0.7-1.3); GFR 36.6; GLUCOSE 89 mg/dL (70-99); PHOSPHORUS 2.7 mg/dL (2.6-4.7); POTASSIUM 4.1 mmol/L (3.5-5.1); SODIUM 144 mmol/L (136-145)
[2017-05-26] MEDS: CARVEDILOL 6.25 MG TABLET. PO (08:00)
[2017-05-26] MEDS: guaiFENesin ORAL 200 MG/10 ML LIQUID. PO (08:03)
[2017-05-26] MEDS: LACTOBACILLUS RHAMNOSUS GG 1 CAPSULE. PO (08:04)
[2017-05-26] MEDS: ASPIRIN ENTERIC COATED 81 MG TABLET.DR. PO (08:04)
[2017-05-26] MEDS: TAMSULOSIN 0.4 MG CAP.ER.24H. PO (08:04)
[2017-05-26] MEDS: FINASTERIDE 5 MG TABLET. PO (08:04)
[2017-05-26] MEDS: VITS A & D/LANOLIN TOPICAL OINTMENT 56GM TUBE. TP (08:10)
[2017-05-26] MEDS: amLODIPine BESYLATE 5 MG TABLET PO (09:20)
[2017-05-26] MEDS: ALBUTEROL SULFATE 2.5 MG/3 ML NEBU. NEB ×2 (09:22→13:41)
[2017-05-26] MEDS: ENOXAPARIN 30 MG/0.3 ML SYRINGE. SQ (14:05)
[2017-05-26] MEDS ORDERED: CARVEDILOL 3.125 MG TABLET. PO (17:00)
== END 2017-05-26 17:01 | DRG 871 ==
LOC: ER 10:04 → 5 SOUTH 11:00
DX: A41.9 Sepsis, unspecified organism (principal); I50.43 Acute on chronic combined systolic (congestive) and diastolic (congestive) heart failure; D61.818 Other pancytopenia; D69.59 Other secondary thrombocytopenia; I42.0 Dilated cardiomyopathy; N18.4 Chronic kidney disease, stage 4 (severe); N17.9 Acute kidney failure, unspecified; E66.01 Morbid (severe) obesity due to excess calories; L03.115 Cellulitis of right lower limb; I13.0 Hypertensive heart and chronic kidney disease with heart failure and stage 1 through stage 4 chronic kidney disease, or unspecified chronic kidney disease; I50.20 Unspecified systolic (congestive) heart failure; D63.1 Anemia in chronic kidney disease; B35.9 Dermatophytosis, unspecified; E03.9 Hypothyroidism, unspecified; E78.00 Pure hypercholesterolemia, unspecified; E78.5 Hyperlipidemia, unspecified; F03.90 Unspecified dementia, unspecified severity, without behavioral disturbance, psychotic disturbance, mood disturbance, and anxiety; I25.10 Atherosclerotic heart disease of native coronary artery without angina pectoris; I87.2 Venous insufficiency (chronic) (peripheral); K21.9 Gastro-esophageal reflux disease without esophagitis; Z86.73 Personal history of transient ischemic attack (TIA), and cerebral infarction without residual deficits; Z87.891 Personal history of nicotine dependence; Z90.49 Acquired absence of other specified parts of digestive tract; Z95.1 Presence of aortocoronary bypass graft; Z96.1 Presence of intraocular lens; Z68.39 Body mass index [BMI] 39.0-39.9, adult; H26.9 Unspecified cataract; M10.9 Gout, unspecified; Z90.89 Acquired absence of other organs; D64.9 Anemia, unspecified; R33.9 Retention of urine, unspecified
CPT/HCPCS: 36415; 71045; 76770; 80048; 80053; 80061; 80069; 81001; 82550; 82570; 82607; 82728; 82746; 82962; 83036; 83540; 83550; 83735; 83880; 84100; 84156; 84443; 84484; 85007; 85018; 85025; 85027; 85045; 86140; 87040; 87045; 87086; 87324; 93005; 93306; 93970; 94640; 94760; 96365; 96375; 97110-GO; 97110-GP; 97116-GP; 97162-GP; 97166-GO; 97530-GO; 97530-GP; 97535-GO; 99285; 99285-25; J0692; J1650; J1940; J2270; J2543; J3370; J7030; J7050; J7613; P9046